=== PATIENT | male | born 1935 | race Caucasian/White ===

== ENCOUNTER 2023-09-10 16:12 | Inpatient (IN) | payer MEDICARE ==
[2023-09-10] MEDS: Sodium Chloride 0.9% 1,000 ML IV SCH (18:00)
[2023-09-10] MEDS ORDERED: Ondansetron PF 4 MG/2 ML Vial IVP PRN (18:14)
[2023-09-10] MEDS ORDERED: Acetaminophen 650 MG Suppository PR PRN (18:14)
[2023-09-10] MEDS ORDERED: Ondansetron ODT 4 MG TAB PO PRN (18:14)
[2023-09-10] MEDS ORDERED: Dextrose 5% in Water 1,000 ML IV PRN (18:21)
[2023-09-10] MEDS ORDERED: Glucagon 1 MG/ML KIT IM PRN (18:21)
[2023-09-10] MEDS ORDERED: Dextrose 50% Abboject 50 ML SYRINGE SLOW IVP PRN (18:21)
[2023-09-10] MEDS ORDERED: Aspirin 300 MG Suppository PR SCH (18:26)
[2023-09-10 19:43] LABS: Hemoglobin 11.4 g/dL (14.0-18.0); Mean Corpuscular HGB CONC 33.5 g/dL (32.0-36.0); Mean Corpuscular Hemoglobin 31.1 pg (27.0-31.0); Mean Corpuscular Volume 92.9 fl (78.0-98.0); Mean Platelet Volume 8.5 fL (7.4-10.4); Platelet Count 233 10x3/uL (130-400); RBC Distribution Width 13.8 % (11.5-14.5); Red Blood Cell (RBC) Count 3.66 mill/uL (4.70-6.10); White Blood Cell (WBC) Count 4.3 10x3/uL (4.8-10.8)
[2023-09-10 19:49] LABS: Delete Auto Diff?? YES; Manual Diff?? YES
[2023-09-10 20:10] LABS: Lactic Acid 4.5 mmol/L (0.5-2.2)
[2023-09-10 20:12] LABS: ALT (SGPT) 14 U/L (8-55); AST (SGOT) 23 U/L (5-34); Albumin 3.3 g/dL (3.4-4.8); Alkaline Phosphatase 23 U/L (40-110); Anion Gap 18 mmol/L (10-20); BUN (Urea Nitrogen) 37 mg/dL (8.4-25.7); Bilirubin, Total 0.7 mg/dL (0.2-1.2); CRP (Inflammatory) 18.59 mg/dL (= or < 0.5); Calc. Creatinine Clearance 32 mL/min (70-130); Calcium 7.6 mg/dL (7.8-10.44); Carbon Dioxide 16 mmol/L (23-31); Chloride 103 mmol/L (98-107); Estimated GFR 29; Globulin 2.1 g/dL (2.4-3.5); Glucose 145 mg/dL (83-110); Potassium 4.3 mmol/L (3.5-5.1); Protein, Total 5.4 g/dL (5.8-8.1); Sodium 133 mmol/L (136-145)
[2023-09-10 20:17] LABS: Band 39 % (5-11); CellaVision Operator ID LAB.CLH1; Large Platelets 0.9 % (0-5); Lymphocytes 1 % (21-51); Metamyelocyte 7 % (0-0); Monocytes 8 % (0-10); Neutrophil 35 % (42-75); Other Cell Types 4.6; Platelet Adequacy Comment Platelets Normal; Reactive Lymphocytes 6 % (0-10); Total Cell Count 108
[2023-09-10] MEDS: Clindamycin/D5W 900 MG in Premix 1 BAG IVPB SCH (22:41)
[2023-09-11] MEDS: Cefepime 1 GM in Sodium Chloride 0.9% 100 ML IVPB SCH ×2 (00:56→13:49)
[2023-09-11] MEDS: Acetaminophen 325 MG TAB PO PRN (03:00)
[2023-09-11] MEDS: Sodium Chloride 0.9% 1,000 ML IV SCH (03:12)
[2023-09-11 04:43] LABS: Hematocrit 35.2 % (42.0-52.0); Hemoglobin 11.8 g/dL (14.0-18.0); Mean Corpuscular HGB CONC 33.5 g/dL (32.0-36.0); Mean Corpuscular Hemoglobin 30.6 pg (27.0-31.0); Mean Corpuscular Volume 91.2 fl (78.0-98.0); Mean Platelet Volume 9.1 fL (7.4-10.4); Platelet Count 243 10x3/uL (130-400); RBC Distribution Width 14.1 % (11.5-14.5); Red Blood Cell (RBC) Count 3.86 mill/uL (4.70-6.10)
[2023-09-11 04:50] LABS: Hemoglobin A1c 7.4 % (4.0-6.0)
[2023-09-11 05:02] LABS: Delete Auto Diff?? YES; Manual Diff?? YES
[2023-09-11 05:09] LABS: Anion Gap 18 mmol/L (10-20); BUN (Urea Nitrogen) 41 mg/dL (8.4-25.7); CK (CPK) 983 U/L (30-200); Calc. Creatinine Clearance 33 mL/min (70-130); Calcium 7.8 mg/dL (7.8-10.44); Carbon Dioxide 16 mmol/L (23-31); Cardiac Risk 1.9 (Less than 4.5); Chloride 105 mmol/L (98-107); Cholesterol 98 mg/dl (< 200 Desired); Estimated GFR 30; Glucose 85 mg/dL (83-110); HDL Cholesterol 52 mg/dL (>60 Neg Risk); LDL Cholesterol, Calculated 32 mg/dL; Potassium 4.5 mmol/L (3.5-5.1); Sodium 134 mmol/L (136-145); Triglycerides 71 mg/dL (Less than 150)
[2023-09-11 05:37] LABS: Band 58 % (5-11); CellaVision Operator ID LAB.CLH1; Lymphocytes 2 % (21-51); Metamyelocyte 19 % (0-0); Monocytes 5 % (0-10); Myelocyte 2 % (0-0); Neutrophil 13 % (42-75); Platelet Adequacy Comment Platelets Normal; Poikilocytosis MODERATE=16-30 cells HPF (0-5); Promyelocytes 2 % (0-0); Total Cell Count 108
[2023-09-11] MEDS: Clindamycin/D5W 900 MG in Premix 1 BAG IVPB SCH ×3 (06:37→21:38)
[2023-09-11] MEDS: Pantoprazole 40 MG VIAL IVP SCH (09:18)
[2023-09-11] MEDS ORDERED: PROPOFOL 20 ML ONE (10:31)
[2023-09-11] MEDS ORDERED: fentaNYL PF 100 MCG/2 ML SYRINGE ONE (10:36)
[2023-09-11] MEDS ORDERED: Ketamine In 0.9 % NaCl 50 MG/5 ML SYRINGE ONE (10:36)
[2023-09-11] MEDS ORDERED: Lidocaine 1% PF 5 ML VIAL ONE ×2 (10:53→11:15)
[2023-09-11] MEDS ORDERED: PHENYLEPHRINE-NS 100 MCG/ML 10 ML SYRINGE ONE ×3 (11:15→12:40)
[2023-09-11] MEDS ORDERED: Rocuronium Bromide 10 MG/ML (10ML VIAL) ONE ×2 (11:15→11:17)
[2023-09-11] MEDS ORDERED: PROPOFOL 200 MG/20 ML VIAL ONE (11:15)
[2023-09-11] MEDS ORDERED: Vancomycin 1 GM VIAL ONE ×2 (11:19→11:21)
[2023-09-11] MEDS ORDERED: Bacitracin Zinc Ointment 30 gm TUBE ONE (11:20)
[2023-09-11] MEDS: Heparin 5,000 UNITS/ML VIAL SC SCH ×2 (12:14→21:34)
[2023-09-11 13:00] LABS: Base Excess (BEa) -12.9 mEq/L (-2.0 to +3.0); Calcium, Ionized (arterial) 1.04 mmol/L (1.12-1.30); Carboxyhemoglobin (COHb) 0.1 gm% (0.0-3.0); Hematocrit-ABG 35 % (42.0-52.0); O2 Tension (PaO2), arterial 152.4 mmHg (> 60.0); Potassium - ABG Lab 4.43 mmol/L (3.70-5.30)
[2023-09-11] MEDS ORDERED: Fentanyl CADD 100 ML IV SCH (13:00)
[2023-09-11] MEDS ORDERED: Propofol BOLUS 1,000 MG/100 ML VIAL IV PRN (13:00)
[2023-09-11] MEDS ORDERED: Lorazepam 2 MG/ML VIAL SLOW IVP PRN (13:00)
[2023-09-11] MEDS ORDERED: Morphine 2 MG/ML VIAL SLOW IVP PRN (13:00)
[2023-09-11] MEDS ORDERED: Fentanyl BOLUS 250 ML IVPB PRN (13:00)
[2023-09-11] MEDS ORDERED: DISCONTINUE PREVIOUS NARCOTIC PAIN MEDICATIONS AND BENZODIAZEPINES FS SCH (13:00)
[2023-09-11 13:09] LABS: Actual Bicarbonate (HCO3a) 14.8 mEq/L (22-28); pH, Arterial 7.176 (7.35-7.45)
[2023-09-11 13:10] LABS: Puncture Site RBA
[2023-09-11] MEDS: Propofol 1,000 MG/100 ML VIAL IV PRN (13:37)
[2023-09-11] MEDS: Sodium Bicarbonate 140 MEQ in Dextrose 5% in Water 1,000 ML IV SCH ×2 (14:35→23:59)
[2023-09-11] MEDS ORDERED: Vancomycin 1 GM in Premix 1 BAG IVPB SCH (15:00)
[2023-09-11] MEDS: HumaLOG 300 UNITS/3 ML VIAL SC PRN ×2 (17:51→23:57)
[2023-09-12] MEDS: Cefepime 1 GM in Sodium Chloride 0.9% 100 ML IVPB SCH (01:29)
[2023-09-12] MEDS: Propofol 1,000 MG/100 ML VIAL IV PRN (02:00)
[2023-09-12 04:31] LABS: Hematocrit 29.1 % (42.0-52.0); Hemoglobin 10.2 g/dL (14.0-18.0); Mean Corpuscular HGB CONC 35.1 g/dL (32.0-36.0); Mean Corpuscular Hemoglobin 31.3 pg (27.0-31.0); Mean Corpuscular Volume 89.3 fl (78.0-98.0); Mean Platelet Volume 8.9 fL (7.4-10.4); Platelet Count 196 10x3/uL (130-400); RBC Distribution Width 14.4 % (11.5-14.5); Red Blood Cell (RBC) Count 3.26 mill/uL (4.70-6.10); White Blood Cell (WBC) Count 11.5 10x3/uL (4.8-10.8)
[2023-09-12 04:57] LABS: Anion Gap 14 mmol/L (10-20); BUN (Urea Nitrogen) 57 mg/dL (8.4-25.7); Calc. Creatinine Clearance 35 mL/min (70-130); Calcium 7.5 mg/dL (7.8-10.44); Carbon Dioxide 21 mmol/L (23-31); Chloride 103 mmol/L (98-107); Estimated GFR 31; Glucose 128 mg/dL (83-110); Potassium 3.7 mmol/L (3.5-5.1); Sodium 134 mmol/L (136-145)
[2023-09-12 04:59] LABS: Delete Auto Diff?? YES; Manual Diff?? YES
[2023-09-12 05:08] LABS: CRP (Inflammatory) 35.48 mg/dL (= or < 0.5)
[2023-09-12 06:03] LABS: Anisocytosis SLIGHT = 6-15 cells HPF (0-5); Band 16 % (5-11); Burr Cells SLIGHT = 2-5 cells HPF (0-1); CellaVision Operator ID lab.sh2; Dohle Bodies SLIGHT; Large Platelets 2.7 % (0-5); Lymphocytes 1 % (21-51); Monocytes 2 % (0-10); Neutrophil 81 % (42-75); Platelet Adequacy Comment Platelets Normal; Polychromasia SLIGHT = 2-3 cells HPF (0-2); Smudge Cells 7.3 %; Total Cell Count 110; Vacuoles SLIGHT
[2023-09-12] MEDS: Clindamycin/D5W 900 MG in Premix 1 BAG IVPB SCH ×3 (06:25→22:57)
[2023-09-12 07:07] LABS: Actual Bicarbonate (HCO3a) 21.5 mEq/L (22-28); Base Excess (BEa) -0.2 mEq/L (-2.0 to +3.0); CO2 Tension 28.1 mmHg (35.0-45.0); Carboxyhemoglobin (COHb) 0.5 gm% (0.0-3.0); Hematocrit-ABG 45 % (42.0-52.0); Hemoglobin (Hb) 15.2 g/dL (14.0-18.0); O2 Tension (PaO2), arterial 77.5 mmHg (> 60.0); Potassium - ABG Lab 3.78 mmol/L (3.70-5.30); pH, Arterial 7.502 (7.35-7.45)
[2023-09-12 07:24] LABS: ALV-art Gradient 172.575 mmHg (0-20); Puncture Site RBA
[2023-09-12] MEDS ORDERED: Phenylephrine 40 MG/NS 250 ML 0 ML ONE (07:30)
[2023-09-12] MEDS ORDERED: fentaNYL PF 100 MCG/2 ML SYRINGE ONE (07:30)
[2023-09-12] MEDS ORDERED: Sevoflurane 250 ML INH ANEST BOTTLE ONE (07:31)
[2023-09-12] MEDS ORDERED: Rocuronium Bromide 10 MG/ML (10ML VIAL) ONE ×2 (07:38→08:14)
[2023-09-12] MEDS ORDERED: PHENYLEPHRINE-NS 100 MCG/ML 10 ML SYRINGE ONE (07:38)
[2023-09-12] MEDS ORDERED: PROPOFOL 20 ML ONE (07:38)
[2023-09-12] MEDS ORDERED: PROPOFOL 200 MG/20 ML VIAL ONE (08:14)
[2023-09-12] MEDS ORDERED: Vancomycin 1 GM VIAL ONE (08:25)
[2023-09-12] MEDS ORDERED: SUGAMMADEX SODIUM 200 MG/2 ML VIAL ONE (08:49)
[2023-09-12] MEDS: Pantoprazole 40 MG VIAL IVP SCH (10:04)
[2023-09-12] MEDS: Sodium Bicarbonate 140 MEQ in Dextrose 5% in Water 1,000 ML IV SCH (10:05)
[2023-09-12] MEDS: Heparin 5,000 UNITS/ML VIAL SC SCH (10:05)
[2023-09-12 10:26] LABS: INR-International Normal Ratio 1.2; PTT 25.8 sec (22.9-36.1); Prothrombin Time 15.2 sec (12.0-14.7)
[2023-09-12] MEDS: Sodium Bicarbonate 70 MEQ in Sodium Chloride 0.45% 1,000 ML IV SCH ×2 (10:50→21:41)
[2023-09-12] MEDS ORDERED: Fentanyl 100 MCG/2 ML VIAL SLOW IVP PRN (11:24)
[2023-09-12] MEDS: HumaLOG 300 UNITS/3 ML VIAL SC PRN ×2 (11:56→18:00)
[2023-09-12] MEDS ORDERED: fentaNYL 50 mcg/mL 1 mL Vial SLOW IVP PRN (12:00)
[2023-09-12] MEDS: Penicillin G Potassium 4 MILL.UNITS, Admixture Fee 1 EACH in Sodium Chloride 0.9% 100 ML IVPB SCH ×2 (13:41→22:57)
[2023-09-12] MEDS ORDERED: Penicillin G Potassium 4,000,000 UNITS in Syringe 0 ML IVPB SCH (14:00)
[2023-09-13 04:14] LABS: Hematocrit 31.2 % (42.0-52.0); Hemoglobin 10.6 g/dL (14.0-18.0); Mean Corpuscular Hemoglobin 30.9 pg (27.0-31.0); Mean Platelet Volume 9.2 fL (7.4-10.4); Platelet Count 202 10x3/uL (130-400); RBC Distribution Width 14.4 % (11.5-14.5); Red Blood Cell (RBC) Count 3.43 mill/uL (4.70-6.10); White Blood Cell (WBC) Count 19.2 10x3/uL (4.8-10.8)
[2023-09-13 04:18] LABS: Delete Auto Diff?? YES; Manual Diff?? YES
[2023-09-13 04:43] LABS: Anion Gap 14 mmol/L (10-20); BUN (Urea Nitrogen) 52 mg/dL (8.4-25.7); CRP (Inflammatory) 30.08 mg/dL (= or < 0.5); Calc. Creatinine Clearance 44 mL/min (70-130); Calcium 8.1 mg/dL (7.8-10.44); Carbon Dioxide 25 mmol/L (23-31); Chloride 100 mmol/L (98-107); Estimated GFR 42; Glucose 96 mg/dL (83-110); Potassium 3.9 mmol/L (3.5-5.1); Sodium 135 mmol/L (136-145)
[2023-09-13 04:55] LABS: Band 24 % (5-11); CellaVision Operator ID LAB.CLH1; Eosinophils 1 % (0-10); Hypochromia SLIGHT = 6-15 cells HPF (0-5); Lymphocytes 1 % (21-51); Monocytes 3 % (0-10); Neutrophil 70 % (42-75); Nucleated RBC (Manual Ct) 1 % (0); Platelet Adequacy Comment Platelets Normal; Polychromasia SLIGHT = 2-3 cells HPF (0-2); Reactive Lymphocytes 1 % (0-10); Total Cell Count 101
[2023-09-13] MEDS: Penicillin G Potassium 4 MILL.UNITS, Admixture Fee 1 EACH in Sodium Chloride 0.9% 100 ML IVPB SCH ×3 (06:37→20:44)
[2023-09-13] MEDS: Clindamycin/D5W 900 MG in Premix 1 BAG IVPB SCH ×3 (06:37→20:35)
[2023-09-13] MEDS ORDERED: Lactated Ringer's 1,000 ML IV SCH (08:15)
[2023-09-13] MEDS: Morphine 4 MG/ML VIAL SLOW IVP PRN (10:01)
[2023-09-13 13:49] LABS: Glucose 120 mg/dL (83-110)
[2023-09-13] MEDS: Sodium Bicarbonate 70 MEQ in Sodium Chloride 0.45% 1,000 ML IV SCH (19:30)
[2023-09-13 22:01] LABS: Troponin I Less than 0.010 ng/mL (< 0.028)
[2023-09-14] MEDS ORDERED: Ipratropium/Albuterol 3 ML NEB NEB PRN (02:13)
[2023-09-14 05:36] LABS: Delete Auto Diff?? YES; Hematocrit 29.5 % (42.0-52.0); Hemoglobin 10.1 g/dL (14.0-18.0); Manual Diff?? YES; Mean Corpuscular HGB CONC 34.2 g/dL (32.0-36.0); Mean Corpuscular Volume 90.5 fl (78.0-98.0); Mean Platelet Volume 9.2 fL (7.4-10.4); Platelet Count 189 10x3/uL (130-400); RBC Distribution Width 14.6 % (11.5-14.5); Red Blood Cell (RBC) Count 3.26 mill/uL (4.70-6.10); White Blood Cell (WBC) Count 13.8 10x3/uL (4.8-10.8)
[2023-09-14 06:09] LABS: Anisocytosis MODERATE=16-30 cells HPF (0-5); Band 2 % (5-11); CellaVision Operator ID lab.sh2; Eosinophils 2 % (0-10); Lymphocytes 4 % (21-51); Macrocytosis SLIGHT = 6-15 cells HPF (0-5); Monocytes 6 % (0-10); Neutrophil 86 % (42-75); Platelet Adequacy Comment Platelets Normal; Polychromasia MODERATE = 3-4 cells HPF (0-2); Smudge Cells 4.9 %; Total Cell Count 102
[2023-09-14 06:41] LABS: Anion Gap 13 mmol/L (10-20); BUN (Urea Nitrogen) 51 mg/dL (8.4-25.7); Calc. Creatinine Clearance 60 mL/min (70-130); Calcium 8.1 mg/dL (7.8-10.44); Carbon Dioxide 24 mmol/L (23-31); Chloride 102 mmol/L (98-107); Estimated GFR 52; Glucose 143 mg/dL (83-110); Potassium 4.3 mmol/L (3.5-5.1); Sodium 135 mmol/L (136-145)
[2023-09-14] MEDS: Penicillin G Potassium 4 MILL.UNITS, Admixture Fee 1 EACH in Sodium Chloride 0.9% 100 ML IVPB SCH ×3 (06:51→21:14)
[2023-09-14] MEDS ORDERED: Metoprolol Tartrate 50 MG TAB PO SCH (10:00)
[2023-09-14] MEDS ORDERED: Amlodipine 10 MG TAB PO SCH (10:00)
[2023-09-14] MEDS ORDERED: Furosemide 20 MG TAB PO SCH (10:00)
[2023-09-14] MEDS: Morphine 4 MG/ML VIAL SLOW IVP PRN (10:26)
[2023-09-14] MEDS: Metoprolol Tartrate 50 MG TAB PO SCH (20:11)
[2023-09-15] MEDS: Penicillin G Potassium 4 MILL.UNITS, Admixture Fee 1 EACH in Sodium Chloride 0.9% 100 ML IVPB SCH ×3 (05:00→21:54)
[2023-09-15 05:24] LABS: Hematocrit 32.6 % (42.0-52.0); Hemoglobin 10.9 g/dL (14.0-18.0); Mean Corpuscular HGB CONC 33.4 g/dL (32.0-36.0); Mean Corpuscular Hemoglobin 30.7 pg (27.0-31.0); Mean Corpuscular Volume 91.8 fl (78.0-98.0); Mean Platelet Volume 9.4 fL (7.4-10.4); Platelet Count 214 10x3/uL (130-400); RBC Distribution Width 14.5 % (11.5-14.5); Red Blood Cell (RBC) Count 3.55 mill/uL (4.70-6.10); White Blood Cell (WBC) Count 11.8 10x3/uL (4.8-10.8)
[2023-09-15 05:27] LABS: Delete Auto Diff?? YES; Manual Diff?? YES
[2023-09-15 05:49] LABS: Anion Gap 13 mmol/L (10-20); BUN (Urea Nitrogen) 49 mg/dL (8.4-25.7); Band 11 % (5-11); Calc. Creatinine Clearance 65 mL/min (70-130); Calcium 8.4 mg/dL (7.8-10.44); Carbon Dioxide 24 mmol/L (23-31); CellaVision Operator ID LAB.CLH1; Chloride 101 mmol/L (98-107); Estimated GFR 59; Glucose 168 mg/dL (83-110); Hypochromia SLIGHT = 6-15 cells HPF (0-5); Lymphocytes 7 % (21-51); Monocytes 8 % (0-10); Neutrophil 67 % (42-75); Platelet Adequacy Comment Platelets Normal; Polychromasia SLIGHT = 2-3 cells HPF (0-2); Potassium 5.3 mmol/L (3.5-5.1); Promyelocytes 1 % (0-0); Reactive Lymphocytes 6 % (0-10); Sodium 133 mmol/L (136-145); Total Cell Count 100
[2023-09-15] MEDS: Furosemide 20 MG/2 ML VIAL SLOW IVP SCH (08:39)
[2023-09-15] MEDS: Metoprolol Tartrate 50 MG TAB PO SCH ×2 (08:39→20:08)
[2023-09-15] MEDS ORDERED: Polyethylene Glycol 3350 17 GM Packet PO PRN (09:32)
[2023-09-15] MEDS: Morphine 4 MG/ML VIAL SLOW IVP PRN ×2 (09:42→22:05)
[2023-09-15] MEDS ORDERED: Polyethylene Glycol 3350 17 GM Packet PO SCH (09:45)
[2023-09-15] MEDS ORDERED: Bisacodyl 10 MG SUPP PR SCH (09:45)
[2023-09-15] MEDS ORDERED: Amlodipine 10 MG TAB PO SCH (18:45)
[2023-09-15] MEDS: HumaLOG 300 UNITS/3 ML VIAL SC PRN (20:25)
[2023-09-16 04:10] LABS: #Basophils 0.1 thou/uL (0.0-0.2); #Eosinphils 0.2 thou/uL (0.0-0.7); #Monocytes 1.4 thou/uL (0.11-0.59); #Neutrophils 11.5 thou/uL (1.40-6.50); %Basophils 0.7 % (0.0-1.0); %Eosinophils 1.1 % (0.0-10.0); %Lymphocytes 9.5 % (21.0-51.0); %Monocytes 9.3 % (0.0-10.0); %Neutrophils 76.5 % (42.0-75.0); Hematocrit 36.3 % (42.0-52.0); Hemoglobin 12.1 g/dL (14.0-18.0); Mean Corpuscular HGB CONC 33.3 g/dL (32.0-36.0); Mean Corpuscular Hemoglobin 30.6 pg (27.0-31.0); Mean Corpuscular Volume 91.9 fl (78.0-98.0); Mean Platelet Volume 9.2 fL (7.4-10.4); Platelet Count 243 10x3/uL (130-400); RBC Distribution Width 14.2 % (11.5-14.5); Red Blood Cell (RBC) Count 3.95 mill/uL (4.70-6.10)
[2023-09-16 04:31] LABS: Anion Gap 13 mmol/L (10-20); BUN (Urea Nitrogen) 45 mg/dL (8.4-25.7); Calc. Creatinine Clearance 76 mL/min (70-130); Calcium 8.5 mg/dL (7.8-10.44); Carbon Dioxide 19 mmol/L (23-31); Chloride 102 mmol/L (98-107); Estimated GFR 71; Glucose 189 mg/dL (83-110); Sodium 129 mmol/L (136-145)
[2023-09-16] MEDS: Penicillin G Potassium 4 MILL.UNITS, Admixture Fee 1 EACH in Sodium Chloride 0.9% 100 ML IVPB SCH ×3 (05:15→21:05)
[2023-09-16] MEDS: HumaLOG 300 UNITS/3 ML VIAL SC PRN ×3 (05:20→21:06)
[2023-09-16] MEDS: Morphine 4 MG/ML VIAL SLOW IVP PRN (09:24)
[2023-09-16] MEDS: Metoprolol Tartrate 50 MG TAB PO SCH ×2 (09:26→21:05)
[2023-09-16] MEDS: Furosemide 20 MG/2 ML VIAL SLOW IVP SCH (09:26)
[2023-09-16 14:57] VITALS: BMI 31.3
[2023-09-16] MEDS: Acetaminophen 325 MG TAB PO PRN (21:05)
[2023-09-17] MEDS: Penicillin G Potassium 4 MILL.UNITS, Admixture Fee 1 EACH in Sodium Chloride 0.9% 100 ML IVPB SCH ×2 (05:50→15:04)
[2023-09-17 05:56] LABS: #Eosinphils 0.3 thou/uL (0.0-0.7); #Neutrophils 12.2 thou/uL (1.40-6.50); %Basophils 0.3 % (0.0-1.0); %Eosinophils 1.7 % (0.0-10.0); %Monocytes 6.5 % (0.0-10.0); %Neutrophils 81.1 % (42.0-75.0); Hematocrit 33.6 % (42.0-52.0); Hemoglobin 11.4 g/dL (14.0-18.0); Mean Corpuscular HGB CONC 33.9 g/dL (32.0-36.0); Mean Corpuscular Volume 91.3 fl (78.0-98.0); Mean Platelet Volume 9.2 fL (7.4-10.4); Platelet Count 314 10x3/uL (130-400); RBC Distribution Width 14.3 % (11.5-14.5); Red Blood Cell (RBC) Count 3.68 mill/uL (4.70-6.10)
[2023-09-17 06:20] LABS: Anion Gap 12 mmol/L (10-20); BUN (Urea Nitrogen) 45 mg/dL (8.4-25.7); Calc. Creatinine Clearance 80 mL/min (70-130); Calcium 8.7 mg/dL (7.8-10.44); Carbon Dioxide 25 mmol/L (23-31); Chloride 99 mmol/L (98-107); Estimated GFR 77; Glucose 185 mg/dL (83-110); Potassium 5.1 mmol/L (3.5-5.1); Sodium 131 mmol/L (136-145)
[2023-09-17] MEDS: Metoprolol Tartrate 50 MG TAB PO SCH ×2 (08:18→20:46)
[2023-09-17] MEDS: Morphine 4 MG/ML VIAL SLOW IVP PRN (11:59)
[2023-09-17] MEDS: HumaLOG 300 UNITS/3 ML VIAL SC PRN ×2 (12:59→17:23)
[2023-09-17 21:36] VITALS: TEMP 98.1
[2023-09-17 23:02] VITALS: BP 173/70
== END 2023-09-17 23:10 | DRG 853 ==
LOC: CCU 17:26 → IMCU/EMU 09-13 09:28 → T4-A 09-16 11:47
PROVIDERS: ADMIT Internal Medicine; ATTEND Internal Medicine
PROC: 3E03329 Introduction of Other Anti-infective into Peripheral Vein, Percutaneous Approach (ICD-10-PCS; 2023-09-10)
PROC: 0JBH0ZZ Excision of Left Lower Arm Subcutaneous Tissue and Fascia, Open Approach (ICD-10-PCS; 2023-09-11)
PROC: 0JDF0ZZ Extraction of Left Upper Arm Subcutaneous Tissue and Fascia, Open Approach (ICD-10-PCS; 2023-09-11)
PROC: 4A033R1 Measurement of Arterial Saturation, Peripheral, Percutaneous Approach (ICD-10-PCS; 2023-09-11)
PROC: 0BH17EZ Insertion of Endotracheal Airway into Trachea, Via Natural or Artificial Opening (ICD-10-PCS; 2023-09-11)
PROC: 5A1935Z Respiratory Ventilation, Less than 24 Consecutive Hours (ICD-10-PCS; 2023-09-11)
PROC: 0JDH0ZZ Extraction of Left Lower Arm Subcutaneous Tissue and Fascia, Open Approach (ICD-10-PCS; 2023-09-12)
PROC: 0KBB0ZX Excision of Left Lower Arm and Wrist Muscle, Open Approach, Diagnostic (ICD-10-PCS; 2023-09-12)
PROC: 0JBH0ZX Excision of Left Lower Arm Subcutaneous Tissue and Fascia, Open Approach, Diagnostic (ICD-10-PCS; 2023-09-12)
PROC: 3E033XZ Introduction of Vasopressor into Peripheral Vein, Percutaneous Approach (ICD-10-PCS; 2023-09-12)
PROC: 02HV33Z Insertion of Infusion Device into Superior Vena Cava, Percutaneous Approach (ICD-10-PCS; principal; 2023-09-17)
PROC: B5181ZA Fluoroscopy of Superior Vena Cava using Low Osmolar Contrast, Guidance (ICD-10-PCS; 2023-09-17)
PROC: B548ZZA Ultrasonography of Superior Vena Cava, Guidance (ICD-10-PCS; 2023-09-17)
DX: A40.0 Sepsis due to streptococcus, group A (principal); A48.3 Toxic shock syndrome; R65.21 Severe sepsis with septic shock; L03.114 Cellulitis of left upper limb; N17.9 Acute kidney failure, unspecified; E87.20 Acidosis, unspecified; E11.9 Type 2 diabetes mellitus without complications; I10 Essential (primary) hypertension; D64.9 Anemia, unspecified; C61 Malignant neoplasm of prostate; S06.5XAD Traumatic subdural hemorrhage with loss of consciousness status unknown, subsequent encounter; E87.70 Fluid overload, unspecified; M65.9 Synovitis and tenosynovitis, unspecified; Z98.890 Other specified postprocedural states
CPT/HCPCS: 36415; 36416; 36556; 36569; 36600; 70450; 71045; 76770; 80048; 80053; 80061; 82550; 82805; 83036; 83605; 83880; 84443; 84484; 85025; 85610; 85730; 86140; 87040; 87070; 87077; 87149; 87186; 87205; 88305; 93005; 93010; 93306; 94002; 94003; 96365; 96366; 96367; 96375; 97139; C1751; C9113; J0692; J1644; J1815; J1885; J1940; J2270; J2540; J2704; J3010; J3370; J3490; J7050; J7070; J7120; P9047